=== PATIENT | male | born 1965 | race Caucasian/White ===

== ENCOUNTER 2022-06-05 14:56 | Emergency (ER) | payer SELFPAY ==
[~2022-06-05] VITALS: Ht 167.6 cm; Wt 110.0 kg
[2022-06-05] MEDS ORDERED: AMARYL1 M1 PO (15:27)
[2022-06-05] MEDS ORDERED: Prinivil5 MG PO (15:27)
[2022-06-05] MEDS ORDERED: SITA100T2 PO (15:27)
[2022-06-05] MEDS ORDERED: ATOR20 PO (15:27)
[2022-06-05] MEDS ORDERED: ARIPIPRAZOLE15 M3 PO (15:27)
[2022-06-05] MEDS ORDERED: SYNJARDY PO (15:27)
== END 2022-06-05 15:27 | disposition home or self-care (01) ==
LOC: ER 14:56
DX: Z76.0 Encounter for issue of repeat prescription (principal); U07.1 COVID-19; Z79.899 Other long term (current) drug therapy
CPT/HCPCS: 99283